=== PATIENT | female | born 1965 | race Hispanic/Latino ===

== ENCOUNTER 2020-10-03 17:53 | Emergency (ER) | payer OTHER ==
[~2020-10-03] VITALS: Ht 154.9 cm; Wt 54.9 kg
[2020-10-03 17:56] VITALS: BP 155/73
== END 2020-10-04 01:41 | disposition left against medical advice (07) ==
LOC: EDH 17:53
DX: R51.9 Headache, unspecified (principal); R42 Dizziness and giddiness; Z53.21 Procedure and treatment not carried out due to patient leaving prior to being seen by health care provider